=== PATIENT | male | born 1990 | race Caucasian/White ===

== ENCOUNTER → 2019-09-12 | Outpatient (CLI) | payer BC ==
--- NOTE | 2019-09-13 12:31 | RAD ---
LUMBAR SPINE 2-3V History: Low back pain. Technique: 3 views lumbar spine. Comparison: None. Findings: Normal alignment. Normal vertebral body height. No fracture. Disc spaces are well-maintained. Impression: 1. No acute osseous abnormality. Electronically signed by: Shay Dupree DO (09/13/2019 12:28 PM) [facility]
--- NOTE | 2019-09-13 12:32 | RAD ---
KNEE LEFT 3V History: Left knee pain. Technique: 3 views left knee. Comparison: None. Findings: Normal alignment. No fracture. No significant knee joint effusion. Impression: 1. No acute osseous abnormality. Electronically signed by: Shay Dupree DO (09/13/2019 12:29 PM) [facility]
== END | disposition home or self-care (01) ==
LOC: RAD 12:29
PROVIDERS: ATTEND Family Medicine
DX: M25.562 Pain in left knee (principal); M54.5 Low back pain
CPT/HCPCS: 72100; 73562